=== PATIENT | male | born 1995 | race Caucasian/White ===

== ENCOUNTER 2021-05-14 21:53 | Emergency (ER) | payer MEDICAID, SELFPAY ==
[2021-05-14 21:57] VITALS: BP 125/70; PULSE 66; RESP 18; TEMP 37; O2SAT 100; BMI 21.6
--- NOTE | 2021-05-14 22:48 | ED_ITS ---
HPI - Eye Problem General Chief complaint: Eye Problems Stated complaint: METAL IN EYE Time Seen by Provider: 05/14/21 22:47 Source: patient Mode of arrival: ambulatory Limitations: no limitations History of Present Illness HPI Narrative: Patient was grinding metal without glasses metal dust went into his eyes he rubbed his eye and and now feeling foreign body sensation in left eye slight blurred vision Related Data Previous Rx's Medication Instructions Recorded tobramycin 2 drp OPHTHALMIC-LEFT Q4H #5 ml 05/14/21 Allergies Allergy/AdvReac Type Severity Reaction Status Date / Time No Known Allergies Allergy Verified 05/14/21 21:57 Review of Systems Review of Systems: Yes all other systems are reviewed and are negative [facility] Social History Social History Advance Directives: No Advance Directives Information Provided: No Physical Exam Vital Signs: Vital Signs: Last Vital Signs Temp 98.6 F 05/14/21 21:57 Pulse 66 05/14/21 21:57 Resp 18 05/14/21 21:57 BP 125/70 05/14/21 21:57 Pulse Ox 100 05/14/21 21:57 Body Mass Index 21.6 Const: General: healthy appearing Orientation/consciousness: patient oriented x3 HENMT: Head: Yes normal to inspection Eyes: Eyelids: Yes eyelids normal Conjunctivae: conjunctival abnormal (Injected ) left Sclerae: sclerae normal Corneas: corneas normal, fluorescein used (Fluorescein uptake left cornea at 01:00 o'clock no foreign body seen) and other (No foreign body seen on eversion of left eyelid) Pupils: Equal, round and reactive pupils present EOM: EOMs intact bilaterally Eyes/upper lids images: 1. Fluorescein uptake at 01:00 o'clock position Resp: Effort & Inspection: normal respiratory effort Neuro: General: patient oriented x3 Cranial nerves: Yes Equal, round and reactive pupils present Discharge Plan Discharge Clinical Impression: Corneal abrasion Patient Disposition: Home, Self-Care Instructions: Corneal Abrasion (ED) Additional Instructions: Local care as advised Eye drops every 4 hours till better Prescriptions: New tobramycin 0.3 % drops 2 drp ophthalmic-Left Q4H Qty: 5 RF: 0 Interventions: ED Discharge Assessment Last Done: 05/14/21 23:47 Discharge Date/Time: 05/14/21 23:47
[2021-05-14] MEDS: Fluorescein Sodium STRIP 1 STRIP EYE-LEFT (23:06)
[2021-05-14] MEDS: Tobramycin Sulfate 0.3% Sol Op 5 ML BTL 2 DROP EYE-LEFT (23:06)
== END 2021-05-14 23:47 | disposition home or self-care (01) ==
PROVIDERS: Emergency Provider Internal Medicine
DX: S05.02XA Injury of conjunctiva and corneal abrasion without foreign body, left eye, initial encounter (principal); X58.XXXA Exposure to other specified factors, initial encounter; Y93.9 Activity, unspecified; Y92.9 Unspecified place or not applicable; Y99.9 Unspecified external cause status
CPT/HCPCS: 99283

== ENCOUNTER 2022-10-13 16:35 | Emergency (ER) | payer MEDICAID, SELFPAY ==
--- NOTE | 2022-10-13 17:23 | ED.GENADULT ---
HPI - General Adult General Chief complaint: General Medical Stated complaint: ? strep throat Related Data Previous Rx's Medication Instructions Recorded tobramycin 0.3 % eye drops 2 drp ophthalmic-Left Q4H #5 mL 05/14/21 Allergies Allergy/AdvReac Type Severity Reaction Status Date / Time No Known Allergies Allergy Verified 05/14/21 21:57 Physical Exam ED Vital Signs: Vital Signs - 24 hr 10/13/22 17:24 Temperature 100.4 F Pulse Rate 105 H Respiratory Rate 18 Blood Pressure 136/79 Pulse Oximetry 100 Oxygen Delivery Method Room Air BMI result Body Mass Index 20.3 Course Course Course Narrative: Triage: -today sore throat, KEENE, took tylenol and ibuprofen around noon, c/o coughing -no fever at home, 100.4 in triage, never been immunized for covid -PMH: childhood asthma -given ibuprofen in ED -PE: tachycardic, HR 110s, erytematous oropharynx with bilateral exudates, no visualized abcess, lungs clear to auscultation -f/u covid and rapid strep Discharge Plan Discharge Prescriptions: No Action tobramycin 0.3 % drops 2 drp ophthalmic-Left Q4H Qty: 5 0RF
[2022-10-13 17:24] VITALS: BP 136/79; PULSE 105; RESP 18; TEMP 38; O2SAT 100; BMI 20.3
[2022-10-13 18:44] LABS: COVID-19 Test Negative (Negative); IDNOW Serial# BCCEAD1C; Strep A Nucleic Acid Negative (Negative)
--- NOTE | 2022-10-13 19:09 | ED_ITS ---
HPI - General Adult General Chief complaint: General Medical Stated complaint: ? strep throat Time Seen by Provider: 10/13/22 18:23 Source: patient Mode of arrival: ambulatory Limitations: no limitations History of Present Illness HPI narrative: 27 yold male presents to the ED for fever, sore throat, and white exudates on tonsills. patient denies any drooling, change in voice, chest pain, shortness of breath, or dental pain Related Data Previous Rx's Medication Instructions Recorded tobramycin 0.3 % eye drops 2 drp ophthalmic-Left Q4H #5 mL 05/14/21 amoxicillin 875 mg-potassium 1 tab PO Q12H 10 days #20 tabs 10/13/22 clavulanate 125 mg tablet naproxen 500 mg tablet 500 mg PO BID PRN pain 10 days #20 10/13/22 tabs Allergies Allergy/AdvReac Type Severity Reaction Status Date / Time No Known Allergies Allergy Verified 05/14/21 21:57 Review of Systems Review of Systems: fever and sore throat Yes all other systems are reviewed and are negative [facility] Social History Social History Advance Directives: No Advance Directives Information Provided: No Physical Exam ED Vital Signs: Vital Signs - 24 hr 10/13/22 17:24 Temperature 100.4 F Pulse Rate 105 H Respiratory Rate 18 Blood Pressure 136/79 Pulse Oximetry 100 Oxygen Delivery Method Room Air BMI result Body Mass Index 20.3 Const General: cooperative, healthy appearing, comfortable, no acute distress, well developed, alert, awake and Physically active; No acute distress Orientation/consciousness: oriented to time and patient oriented x3 HENMT Head: Yes normal to inspection, Yes No palpable skull fracture present, Yes normocephalic and No atraumatic Throat: Yes abnormal tonsil (bilateral tonsil exudates. NO signs of peritonsillar abscess.) Eyes General: appearance normal, both eyes and all related structures Neck Neck: Yes normal visual inspection, Yes full ROM, Yes no lymphadenopathy, Yes no meningeal signs, Yes trachea midline, Yes supple, No anterior neck swelling and No tender Chest Chest palpation & inspection: normal inspection of the chest and normal palpation of entire chest wall Resp Effort & Inspection: normal respiratory effort and able to speak in complete sentences Auscultation: clear to auscultation bilaterally Cardio Jugular venous distension: no JVD Heart sounds: S1 normal heart sound present and S2 normal heart sound present GI Inspection: Yes normal to inspection and No abdominal wall ecchymosis Palpation (GI): Soft to palpation, not firm, nontender, no guarding and not rigid General: No CVA tenderness and Yes no CVA tenderness Back/Spine/Pelvis Back: no CVA tenderness, No CVA tenderness and No back tenderness Skin General skin exam: no rashes or lesions noted and elasticity normal Neuro General: oriented to time, patient oriented x3, gait normal and no meningeal signs Cranial nerves: Yes CN's II-XII intact bilaterally Extrem General: Yes normal to inspection and Yes full ROM Psych Appearance: grossly normal, well kempt and not disheveled Course Course Course Narrative: Covid and strep ordered Reevaluation(s) Reevaluation #1: Covid and strep test negative. patient states pmh of strep throat infectiion in the past. Will discharge with antibiotics and NSaids Time: 19:13 Medications Administered Discontinued Medications Generic Name Dose Route Start Last Admin Trade Name Freq PRN Reason Stop Dose Admin Ibuprofen 800 mg 10/13/22 19:05 10/13/22 19:18 Ibuprofen 800 Mg Tablet PO 10/13/22 19:06 800 mg ONCE ONE Administration Medical Decision Making MDM Narrative Medical decision making narrative: Tonsillitis Lab Data Labs: Lab Results 10/13/22 10/13/22 Range/Units 17:32 17:32 COVID-19 (ENRIQUE) Negative (Negative) COVID-19 Clin Com See Note S. pyogenes GrpA JATINDER Negative (Negative) Discharge Plan Discharge Clinical Impression: Pharyngitis Patient Disposition: Home, Self-Care Instructions: Pharyngitis (ED) Additional Instructions: Return to the ED immeidatley for any drooling, change in voice, chest pain, shortness of breath, neck swelling, or any other concerning symptoms. Please follow up with PCP Prescriptions: New amoxicillin-pot clavulanate 875-125 mg tablet 1 tab PO Q12H 10 Days Qty: 20 0RF naproxen 500 mg tablet 500 mg PO BID PRN (Reason: pain) 10 Days Qty: 20 0RF No Action tobramycin 0.3 % drops 2 drp ophthalmic-Left Q4H Qty: 5 0RF Stand Alone Forms: Work/School Release Interventions: ED Discharge Assessment Last Done: 10/13/22 19:24 Discharge Date/Time: 10/13/22 19:25 Print Language: [place]
[2022-10-13] MEDS: Ibuprofen 800 MG TABLET PO (19:18)
== END 2022-10-13 19:25 | disposition home or self-care (01) ==
PROVIDERS: Emergency Medicine; Emergency Provider Internal Medicine
DX: J02.9 Acute pharyngitis, unspecified (principal); Z20.822 Contact with and (suspected) exposure to COVID-19
CPT/HCPCS: 87635; 87651; 99283

== ENCOUNTER 2023-05-19 17:54 | Emergency (ER) | payer MEDICAID, SELFPAY ==
[2023-05-19 18:32] VITALS: BP 116/70; PULSE 66; RESP 18; TEMP 36.8; O2SAT 98; BMI 21.5
--- NOTE | 2023-05-19 18:33 | ED.GENADULT ---
HPI - General Adult General Chief complaint: Eye Problems Stated complaint: L eye swelling Time Seen by Provider: 05/19/23 18:39 Source: patient, RN notes reviewed and old records reviewed Mode of arrival: ambulatory Limitations: no limitations History of Present Illness HPI narrative: 28-year-old male presents for evaluation of left upper eyelid swelling and pain. He states that night he was hit in the face with a dog toy that his dog accidentally flung at him. He states that it was a soft toe a but hit him in the eye and the next day he woke up with left upper eyelid swelling He has a history of ?styes. Denies any visual changes or drainage from the eye Related Data Previous Rx's Medication Instructions Recorded tobramycin 0.3 % eye drops 2 drp ophthalmic-Left Q4H #5 mL 05/14/21 amoxicillin 875 mg-potassium 1 tab PO Q12H 10 days #20 tabs 10/13/22 clavulanate 125 mg tablet naproxen 500 mg tablet 500 mg PO BID PRN pain 10 days #20 10/13/22 tabs erythromycin 5 mg/gram (0.5 %) eye 0.5 inch ophthalmic-Left TID 5 05/19/23 ointment days #3.5 grams Allergies Allergy/AdvReac Type Severity Reaction Status Date / Time No Known Allergies Allergy Verified 05/19/23 18:35 Review of Systems Constitutional: Constitutional: Denies headache(s) Eyes: Eyes: Denies change in vision, Denies diplopia and Reports eye pain ENT: Denies headache(s) Cardiovascular: Cardiovascular: Denies chest pain and Denies dyspnea Respiratory: Respiratory: Denies dyspnea Neurologic: Denies headache(s) Physical Exam ED Vital Signs: Vital Signs - 24 hr 05/19/23 18:32 Temperature 98.2 F Pulse Rate 66 Respiratory Rate 18 Blood Pressure 116/70 Pulse Oximetry 98 Oxygen Delivery Method Room Air BMI result Body Mass Index 21.5 Const General: healthy appearing, comfortable, no acute distress, alert and awake Nutritional Appearance: well nourished Orientation/consciousness: patient oriented x3 HENMT Head: Yes normocephalic and Yes atraumatic Eyes Eyelids: Yes eyelid abnormality (Left upper eyelid hordeolum. Minimal erythema) Conjunctivae: conjunctivae normal and normal conjunctivae Sclerae: sclerae normal Corneas: corneas normal Pupils: Equal, round and reactive pupils present EOM: EOMs intact bilaterally Neck Neck: Yes full ROM Resp Effort & Inspection: normal respiratory effort, able to speak in complete sentences and not labored Skin General skin exam: elasticity normal Neuro General: patient oriented x3 Cranial nerves: Yes Equal, round and reactive pupils present and Yes Bilaterally intact EOM present Cognition (Neuro): normal cognition Medical Decision Making Medical Decision Making MDM Narrative: 28 year old male presents for evaluation of left upper eyelid pain and swelling. He reports his symptoms started after he was hit in the eye with a dog toy a few days ago. Reports he has been trying warm compresses without relief. Plan for ophthalmic exam. Fluorescein stain shows no increased uptake. The patient has a hordeolum which appears to be slightly infected, no evidence of preseptal cellulitis, we will treat with erythromycin ointment Differential Diagnosis Santos Blepharitis Corneal abrasion Preseptal cellulitis Discharge Plan Discharge Clinical Impression: Hordeolum externum left upper eyelid Patient Disposition: Home, Self-Care Instructions: Jenni (ED) Additional Instructions: It is most important to use warm compresses for 10-15 minutes every 2 hours until your symptoms resolve You should also use erythromycin ointment 3 times a day for the next 5 days Follow-up with Dr. Durant for further eye complaints Prescriptions: New erythromycin 5 mg/gram (0.5 %) ointment 0.5 inch ophthalmic-Left TID 5 Days Qty: 3.5 0RF No Action tobramycin 0.3 % drops 2 drp ophthalmic-Left Q4H Qty: 5 0RF amoxicillin-pot clavulanate 875-125 mg tablet 1 tab PO Q12H 10 Days Qty: 20 0RF naproxen 500 mg tablet 500 mg PO BID PRN (Reason: pain) 10 Days Qty: 20 0RF Referrals: Chicho Durant [Physician] - (recurrent ye) Stand Alone Forms: Work/School Release
[2023-05-19] MEDS: Tetracaine HCl/PF 0.5% Oph Sol 4 ML DROPS 1 DROP EYE-LEFT (18:42)
[2023-05-19] MEDS: Fluorescein Sodium STRIP 1 STRIP EYE-LEFT (18:42)
== END 2023-05-19 19:01 | disposition home or self-care (01) ==
LOC: HO.ED 18:57
PROVIDERS: Emergency Provider Emergency Medicine
DX: H00.014 Hordeolum externum left upper eyelid (principal); Z79.899 Other long term (current) drug therapy
CPT/HCPCS: 99282; 99283

== ENCOUNTER 2025-06-12 15:45 | Emergency (ER) | payer OTHER, SELFPAY | END 2025-06-12 19:12 | disposition left against medical advice (07) | PROVIDERS: Emergency Provider Emergency Medicine | DX: K13.79 Other lesions of oral mucosa (principal); Z53.21 Procedure and treatment not carried out due to patient leaving prior to being seen by health care provider ==